=== PATIENT | male | born 2000 | race Caucasian/White ===

== ENCOUNTER 2021-08-16 22:47 | Emergency (ER) | payer OTHER ==
[2021-08-17] MEDS ORDERED: NORCO 5-325 TA1 EACH PO (02:39)
[2021-08-17] MEDS ORDERED: VIBRAMYCIN100 MG PO (02:39)
== END 2021-08-17 03:05 | disposition home or self-care (01) ==
LOC: FER 22:47
DX: L02.31 Cutaneous abscess of buttock (principal)